=== PATIENT | male | born 1970 | race Caucasian/White ===

== ENCOUNTER 2017-06-22 10:22 | Inpatient (IN) | payer OTHER ==
--- NOTE | 2017-06-22 10:21 | EDPHY ---
HPI/HX/ROS/PE/MDM Narrative: CHIEF COMPLAINT: Stroke Alert HPI: The patient is a 46-year-old male, who comes in by EMS as a Stroke Alert. For the past week the patient has experienced intermittent headaches that have increased in frequency and duration. Over the past 4 days the patient has experienced vertigo. At 9:30 a.m. this morning the patient developed sudden onset of severe headache. He had associated nausea and dizziness. At onset of headache patient had ringing in his ears and noticed left sided weakness. No visual changes. Patient reports a recent incident of whiplash. He says he snapped his head back after playing a golf game on his iPad. He had a massage done after this to try to alleviate his pain. REVIEW OF SYSTEMS: Aside from elements discussed in the HPI, a comprehensive 10-point review of systems was reviewed and is negative. PMH: Denies. SOCIAL HISTORY: , at bedside. PHYSICAL EXAM: General: Patient is alert, in no acute distress. ENT: Eyes are normal to inspection. ENT inspection normal. Neck: Normal inspection. Full range of motion. Respiratory: No respiratory distress. Breath sounds normal bilaterally. Cardiovascular: Regular rate and rhythm. Strong peripheral pulses. Abdomen: The abdomen is nontender to palpation. There are no peritoneal signs. There are normal bowel sounds. Back: Normal to inspection. No tenderness to palpation. Skin: Normal color. No rash. Warm and dry. Extremities: Normal appearance. Full range of motion. Neuro: Oriented x3. Left sided facial droop. Abnormal speech. ED Course: I met the patient on arrival at 10:22 a.m. Patient has left sided facial weakness. Patient was sent to CT immediately. 1030: Noncontrast head CT was negative per the radiologist, Dr. Jonathan Stout. 1045: Patient was evaluated by the neuro-robot. Patient's neurological findings include nasal palatal speech deficit and left sided facial droop. tPA is recommended. 1050: Head CTA shows left vertebral artery dissection per the radiologist, Dr. Jonathan Stout. She agrees with the plan for tPA administration. 1100: I spoke to the hospitalist, Dr. Starr, who accepts the patient for admission. Critical care time spent by me, Dr. Piña, exclusively with this patient was 80 minutes, exclusive of PA time, and exclusive of procedures. The patient has a vertebral artery dissection and tPA was administered in the emergency room. The patient was admitted and transferred to the care of a neurosurgeon to prevent worsening of the patients condition. - Data Points Imaging Results: Imaging Impressions Chest X-Ray 06/22/17 10: Impression: Normal. Head CT 06/22/17 10: Impression: No definite focal truncation or vessel blockage. No bleed. No signs of acute or subacute stroke. Report was given to Dr. Sunday Piña at 10:30 a.m. Head CTA 06/22/17 10: Impression: Dominant right vertebral. No acute intracranial abnormality. Preliminary result is given to Dr. Sunday Morales at 10:38 AM. Final results at 10:48 AM. Neck CTA 06/22/17: Impression: 1. 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 2. Acute truncation of flow in the left vertebral artery at C1-C2, with subsequent reconstitution at skull base. The most likely explanation is distal dissection with subsequent complete occlusion. This would explain majority of patient's presenting symptoms as well. 3. Given presence of right-sided facial droop without a discrete discernible vascular occlusion in the right middle cerebral distribution, consider MRI of the brain for evaluation of diffusion abnormalities. Consider noncontrast MRI of the neck, looking for blood products in the left vertebral wall, to assess definitively the extent of the left vertebral dissection, although this would not change medical management. 4. No atherosclerotic disease or related stenosis. 5. Anatomic variation where the right ascending pharyngeal artery comes straight off of the carotid bifurcation. Preliminary result was given to Dr. Piña at 10:38 a.m. raising the possibility of a left vertebral dissection. Final results of the above were given to Dr. Piña at 10:48 a.m. Note: All stenoses are calculated using NASCET Criteria. Imaging: Discussed imaging studies w/ teacher physically impaired Radiologist Laboratory Results: Laboratory Results 06/22/17 10:31 06/22/17 10:31 06/22/17 06/22/17 06/22/17 10:31 10:31 10:31 WBC 7.53 10^3/uL 10^3/uL (3.80-9.50) RBC 5.59 10^6/uL 10^6/uL (4.40-6.38) Hgb 17.5 g/dL g/dL (13.7-17.5) POC Hgb Hct 48.4 % % (40.0-51.0) POC Hct MCV 86.6 fL fL (81.5-99.8) MCH 31.3 pg pg (27.9-34.1) MCHC 36.2 g/dL g/dL (32.4-36.7) RDW 11.6 % % (11.5-15.2) Plt Count 189 10^3/uL 10^3/uL (150-400) MPV 10.8 fL fL (8.7-11.7) Neut % (Auto) 44.3 % % (39.3-74.2) Lymph % (Auto) 45.9 % H % (15.0-45.0) Todd % (Auto) 8.0 % % (4.5-13.0) Eos % (Auto) 0.8 % % (0.6-7.6) Baso % (Auto) 0.7 % % (0.3-1.7) Nucleat RBC Rel Count 0.0 % % (0.0-0.2) Absolute Neuts (auto) 3.34 10^3/uL 10^3/uL (1.70-6.50) Absolute Lymphs (auto) 3.46 10^3/uL H 10^3/uL (1.00-3.00) Absolute Monos (auto) 0.60 10^3/uL 10^3/uL (0.30-0.80) Absolute Eos (auto) 0.06 10^3/uL 10^3/uL (0.03-0.40) Absolute Basos (auto) 0.05 10^3/uL 10^3/uL (0.02-0.10) Absolute Nucleated RBC 0.00 10^3/uL 10^3/uL (0-0.01) Immature Gran % 0.3 % % (0.0-1.1) Immature Gran # 0.02 10^3/uL 10^3/uL (0.00-0.10) PT 14.0 SEC SEC (12.0-15.0) INR 1.09 (0.83-1.16) POC Sodium Sodium 137 mEq/L mEq/L (134-144) POC Potassium Potassium 4.3 mEq/L mEq/L (3.5-5.2) POC Chloride Chloride 106 mEq/L mEq/L (97-110) Carbon Dioxide 17 mEq/l L mEq/l (22-31) Anion Gap 14 mEq/L mEq/L (8-16) POC BUN BUN 14 mg/dL mg/dL (7-23) Creatinine 1.0 mg/dL mg/dL (0.7-1.3) POC Creatinine Estimated GFR > 60 Glucose 114 mg/dL H mg/dL (70-100) POC Glucose Calcium 9.3 mg/dL mg/dL (8.5-10.4) 06/22/17 10:25 WBC RBC Hgb POC Hgb 17.3 gm/dL gm/dL (13.7-17.5) Hct POC Hct 51 % % (40-51) MCV MCH MCHC RDW Plt Count MPV Neut % (Auto) Lymph % (Auto) Todd % (Auto) Eos % (Auto) Baso % (Auto) Nucleat RBC Rel Count Absolute Neuts (auto) Absolute Lymphs (auto) Absolute Monos (auto) Absolute Eos (auto) Absolute Basos (auto) Absolute Nucleated RBC Immature Gran % Immature Gran # PT INR POC Sodium 140 mEq/L mEq/L (134-144) Sodium POC Potassium 3.8 mEq/L mEq/L (3.3-5.0) Potassium POC Chloride 105 mEq/L mEq/L (97-110) Chloride Carbon Dioxide Anion Gap POC BUN 14 mg/dL mg/dL (7-23) BUN Creatinine POC Creatinine 1.0 mg/dL mg/dL (0.7-1.3) Estimated GFR Glucose POC Glucose 128 mg/dL H mg/dL (70-100) Calcium Medications Given: Discontinued Medications Alteplase, Recombinant (Activase) 7.85646 mg 0.09 mg/kg (7.46482 mg) IV ONCE ONE PRN Reason: Protocol Stop: 06/22/17 10:48 Last Admin: 06/22/17 10:50 Dose: 7.8 mg Alteplase, Recombinant (Activase) 69.08930 mg 0.81 mg/kg (69.50983 mg) IV ONCE ONE PRN Reason: Protocol Stop: 06/22/17 10:48 Last Admin: 06/22/17 10:51 Dose: 69.8 mg Sodium Chloride (Ns) 50 mls @ 0 mls/hr IV EDNOW ONE PRN Reason: Per Protocol Stop: 06/22/17 10:48 Last Admin: 06/22/17 11:40 Dose: 50 mls Point of Care Test Results: 06/22/17 10:25 POC Sodium 140 POC Potassium 3.8 POC Chloride 105 POC BUN 14 POC Creatinine 1.0 POC Glucose 128 H General Initial Vital Signs: Initial Vital Signs Temperature (C) 36.8 C 06/22/17 10:43 Heart Rate 68 06/22/17 10:43 O2 Delivery Mode Nasal Cannula O2 (L/minute) 2 Allergies/Adverse Reactions: divalproex sodium [From Depakote] Allergy (Verified 06/22/17 11:19) Home Medications: Medication Instructions Recorded Fexofenadine HCl [Magaly Allergy] 60 mg PO DAILY 06/22/17 LORazepam [Ativan (*)] 1.5 mg PO HS 06/22/17 Mirtazapine [Remeron] 60 mg PO HS 06/22/17 Naproxen [Naprosyn] 500 mg PO BID PRN 06/22/17 Nortriptyline HCl [Pamelor 10 mg 20 mg PO HS 06/22/17 (*)] Nortriptyline HCl [Pamelor] 75 mg PO HS 06/22/17 Ranitidine HCl [Zantac 75] 75 mg PO DAILY 06/22/17 Departure - Departure Disposition: [facility] Inpatient Acute Clinical Impression: Vertebral artery dissection Condition: Serious Report Scribed for: Sunday Piña Report Scribed by: Zuleima Saavedra Date of Report: 06/22/17 Time of Report: 10:21 Physician Review and Approval Statement: Portions of this note were transcribed by a diagnostic medical sonographer. I personally performed the history, physical exam, and medical decision-making; and confirmed the accuracy of the information in the transcribed note.
[2017-06-22 10:40] LABS: % IMMATURE GRANULYOCYTES 0.3 % (0.0-1.1); ABSOLUTE IMMATURE GRANULOCYTES 0.02 10^3/uL (0.00-0.10); ADD DIFF? NO; ADD MORPH? NO; ADD SCAN? NO; ATYPICAL LYMPHOCYTE FLAG 10 (0-99); FRAGMENT RBC FLAG 0 (0-99); HEMATOCRIT 48.4 % (40.0-51.0); HEMOGLOBIN 17.5 g/dL (13.7-17.5); LEFT SHIFT FLG 0 (0-99); LIPEMIA HEMOLYSIS FLAG 90 (0-99); MEAN CELL HEMOGLOBIN 31.3 pg (27.9-34.1); MEAN CELL HEMOGLOBIN CONCENTR. 36.2 g/dL (32.4-36.7); MEAN CELL VOLUME 86.6 fL (81.5-99.8); MEAN PLATELET VOLUME 10.8 fL (8.7-11.7); PLATELET CLUMPS FLAG 10 (0-99); PLATELET COUNT 189 10^3/uL (150-400); RED BLOOD CELL COUNT 5.59 10^6/uL (4.40-6.38); RED CELL DISTRIBUTION WIDTH 11.6 % (11.5-15.2)
[2017-06-22] MEDS ORDERED: ALTEPLASE 100 MG/100 ML VIAL IV ONE ×2 (10:43→10:47)
[2017-06-22] MEDS ORDERED: ALTEPLASE 1 MG/ML SYR IV ONE (10:47)
[2017-06-22] MEDS ORDERED: NS 50 ML IV ONE (10:47)
--- NOTE | 2017-06-22 10:52 | CPEKG ---
Heart Rate: 71 RR Interval: 845 P-R Interval: 156 QRSD Interval: 102 QT Interval: 416 QTC Interval: 453 P Noble: 61 QRS Noble: 23 T Wave Noble: 44 EKG Severity - BORDERLINE ECG - EKG Impression: SINUS RHYTHM EKG Impression: TALL R WAVE IN V2, CONSIDER RVH OR PMI Electronically Signed By: Tyler Rogers 24-Jun-2017 08:16:28
[2017-06-22 10:54] LABS: INR 1.09 (0.83-1.16)
[2017-06-22 11:01] LABS: ANION GAP 14 mEq/L (8-16); CALCIUM 9.3 mg/dL (8.5-10.4); CARBON DIOXIDE 17 mEq/l (22-31); CHLORIDE 106 mEq/L (97-110); GLOMERULAR FILTRATION RATE > 60; GLUCOSE 114 mg/dL (70-100); POTASSIUM 4.3 mEq/L (3.5-5.2); SODIUM 137 mEq/L (134-144)
[2017-06-22] MEDS ORDERED: ONDANSETRON DISINTEGRATING 4 MG TAB PO PRN (11:31)
[2017-06-22] MEDS ORDERED: LABETALOL HCL 5 MG/ML 20 ML MDV IVP PRN (11:33)
[2017-06-22 13:24] LABS: HEMOGLOBIN A1C 4.9 % (4.0-6.0)
[2017-06-22] MEDS: NS 1,000 ML IV SCH (15:31)
--- NOTE | 2017-06-22 15:44 | NEUROPROG ---
Assessment: [id number] CC: Stroke, post-TPA HPI: This patient was initially seen 06/22/17 as an inpatient consult at [facility]. He reported 2 weeks of head/neck pain. 4-5 days ago he began getting vertigo intermittently. This am, he developed sudden onset left facial weakness, dysarthria, and left arm ataxia. He presented to [facility] ER where a head CT was normal but a CTA head/neck suggested a left vertebral dissection with left vert occlusion as the likely cause of an acute stroke. He was given TPA and admitted to the ICU. When I saw him he developed new diplopia during my exam so I ordered a STAT head CT (still pending read) to exclude hemorrhagic conversion. He does report in the last few weeks possible neck injury playing an Ipad and a massage done for that pain. PMHx: none SHx: FHx: NC ROS: Pt denied acute fever, total vision loss, active severe chest pain, respiratory failure, total body severe rash, total bowel/bladder incontinence, psychosis, active seizures, or active bleeding O: VS bp 132/80 P 65 RR 16 Satting 91% on RA Temp 36.8C NSR General: Alert Eyes: Fundoscopic exam not able to visualize optic disks CV: Heart RRR, no murmur, no carotid bruit Lungs: Clear to auscultation bilaterally, no rhonci or rales Neuro: - Mental: . Oriented x person/place/date . concentration appears normal . speech fluency/comprehension normal . memory appears normal . fund of knowledge appear intact - Cranial Nerves: . II: PERRL, VFFTC . III/IV/: EOMI (although patient complained of slight diplopia), no nystagmus, normal smooth pursuits, no Ptosis . V: facial sensation intact to LT . VII: left upper and lower facial weakness . VIII: hearing intact to conversation . IX/X: uvula raises symmetrically, dysarthric voice (mild) . XI: SCM 5/5 B/L strength . XII: tongue protrudes midline w/nl strength - Motor: . Tone: normal tone in all 4 extrem . Strength: no pronator drift, strength 5/5 throughout (B/L delt, bic, tri, hand television cameraman, hf/he, df/pf) - Reflexes: B/L bic/BR/patella 2/4 - Sensory: all 4 extrem intact to light touch - Coord: left arm ataxic - Gait: deferred NIH SS: 5 (3 left face weak, 1 left arm ataxic, 1 dysarthria) Labs: 06/22/17- CBC wnl, INR wnl, Chem wnl, H1AC 4.9 Rads: 06/22/17- Head CT: no acute changes, no bleed (I personally visualized the images on 06/22/17) 06/22/17- CTA head/neck: likely distal left vert dissection with occlusion Assessment: 1. Left vertebral artery dissection causing vessel occlusion and stroke, status post-TPA: His neurologic exam showed diplopia, upper/lower facial weakness, dysarthria, and left arm ataxia. This likely represents a stroke in the left jeffrey region to explain his symptoms. He received TPA. 2. 2 week of head pain/neck pain: I suspect his left vertebral dissection occurred 2 weeks ago to explain the pain. I suspect he progressed to a vessel occlusion and stroke on 06/22/17. Plan: - ICU care for 24 hours given TPA, avoid all blood sticks - blood pressure < 185/110 X 72 hours then < 140/90 retirement - H1AC goal < 7.0 (4.9) - LDL goal < 70 (lipid panel pending) - DVT prophy w/SCDs - Hold antiplatelet therapy for 24 hours, if head CT at that time shows no bleed then begin aspirin 325 mg qd (change to 81 mg qd at discharge) - Head CT 24 hours after TPA to exclude hemorrhagic conversion - Brain MRI w/o contrast tomorrow to map out stroke - TTE, 24 hour telemetry to exclude cardioembolic source of stroke ADDENDUM: Pt felt his diplopia came on suddenly after the TPA so I ordered a STAT head CT to exclude hemorrhage. If this is unremarkable and he remains stable then no further emergent evaluation is needed. I suspect his initial stroke is evolving to explain his changing symptoms. NO additional therapy needed at this time. 90 minutes of critical care time. I evaluated the patient initially then ordered a STAT head CT with changing neurologic symptoms (diplopia). He has a stroke with TPA and therefore requires ICU care Objective: Vital Signs Temp Pulse Resp BP Pulse Ox 36.8 C 82 18 132/80 H 99 06/22/17 13:00 06/22/17 15:30 06/22/17 15:30 06/22/17 15:30 06/22/17 15:30 PT 14.0 SEC (12.0-15.0) 06/22/17 10:31 INR 1.09 (0.83-1.16) 06/22/17 10:31 Allergies/Adverse Reactions: divalproex sodium [From Depakote] Allergy (Verified 06/22/17 11:19)
--- NOTE | 2017-06-22 16:03 | GHP ---
[f rep st] HISTORY AND PHYSICAL DATE OF ADMISSION: 06/22/2017 CHIEF COMPLAINT: Headache, dizziness, left facial droop. HISTORY OF PRESENT ILLNESS: This is a 46-year-old male who about 4 days ago was playing a video bianka e during which he frequently makes violent motions with his head and neck. After that patient was h aving intermittent headaches and vertigo. This morning he developed a sudden onset of severe headac he as well as ringing in his ears and left-sided facial weakness. He has also had some nasal voice. REVIEW OF SYSTEMS: A 10-point review of systems was obtained and was negative. PAST MEDICAL HISTORY: 1. Depression. 2. Chronic mast cell activation. SOCIAL HISTORY: No smoking. Occasional alcohol. FAMILY HISTORY: Reviewed. PHYSICAL EXAM: VITAL SIGNS: Afebrile, blood pressure is 140/85, heart rate 77, oxygen saturation 9 8% on room air. GENERAL: The patient is well developed, no apparent distress. HEENT: Nonicteric sclerae. Extraocular muscles are intact. Moist mucous membranes. NECK: Supple. No thyromegaly. LUNGS: Good effort. Clear to auscultation bilaterally. CARDIOVASCULAR: Regular rate and rhythm. No murmurs, rubs, or gallops. ABDOMEN: Positive bowel sounds. Soft, nontender, nondistended. E XTREMITIES: No clubbing, cyanosis, or edema. SKIN: Without rash, dry, intact. NEUROLOGIC: Alert and oriented x3. There is left facial droop. Nasal sounding voice. No cerebellar signs. PSYCH: Normal mood and affect. LABORATORY DATA: CBC is normal. Chemistries normal. IMAGING: CT scan of the neck shows probable dissection at C1 of the left vertebral artery. ASSESSMENT: This is a 46-year-old male presenting with probable left vertebral dissection status po st tPA. PLAN: 1. Left vertebral dissection. The patient is status post tPA. We will start the tPA order sets. Neurology has been consulted. We will monitor in the ICU. 2. Depression. 3. Mast cell activation. We will continue his medications. /[id number]/MODL
--- NOTE | 2017-06-22 17:23 | GCON ---
[f rep st] CONSULTATION CRITICAL CARE CONSULTATION DATE OF CONSULTATION: 06/22/2017 HISTORY OF PRESENT ILLNESS: The patient is a healthy 46-year-old male, who was admitted today via s troke alert and EMS due to a sudden onset of left-sided weakness and facial droop. He was playing a video game and reported fairly aggressive motion with his head 4 or 5 days ago associated with some dizziness. Symptoms seemed to resolve, but he then he developed worsening vertigo, as well as naus ea and vomiting, and today had sudden onset of speech abnormality, left facial droop, and flaccid pa ralysis of the left arm. He was brought to the emergency department where a CT scan did not show an y evidence of hemorrhage. A stroke alert was called, and he did receive tPA. He denies any other p ast medical history and has otherwise been healthy. REVIEW OF SYSTEMS: Otherwise negative PAST MEDICAL HISTORY: 1. Depression. 2. Chronic sinusitis. PAST SURGICAL HISTORY: None. MEDICATIONS: Outpatient medications are none. Currently, he is on Tylenol, Zyrtec, Pepcid, labetal ol p.r.n., Ativan p.r.n., Remeron q.h.s., and Zofran p.r.n. PHYSICAL EXAMINATION: VITAL SIGNS: He had a blood pressure of 132/80, heart rate of 65, respiratio ns 16, oxygen saturation 91% on room air. GENERAL: He was awake and alert, in no apparent distress , and able to speak in full sentences without using accessory muscles for breathing. His speech did seem a little bit abnormal, and there was a clear left-sided facial droop with smiling. HEENT: Ot herwise, there was no ptosis. Pupils equally round and reactive to light, nonicteric, and noninject ed. Mucous membranes are moist without erythema or exudate. NECK: Supple without adenopathy or ju gular vein distention. LUNGS: Breath sounds clear to auscultation bilaterally without wheezes, rub s or rales. HEART: Regular rate and rhythm without murmurs, rubs, or gallops. ABDOMEN: Soft, non tender, nondistended without hepatosplenomegaly. EXTREMITIES: Showed no clubbing, cyanosis, or franco ma. NEUROLOGIC: His left arm strength seemed to be quite normal to me, 5/5, as well as lower extre mities. Deep tendon reflexes were normal and intact. The left facial droop is as reported. SKIN: Warm and dry without evidence of rash. IMAGING DATA: CT scan and CT angiogram showed congenital narrowing of a vertebral artery and an acu te cutoff of the left vertebral artery. Repeat MRI is currently pending at this time. Otherwise, h is labs were unremarkable. ASSESSMENT AND PLAN: Acute stroke, which has been treated with tPA. [facility] has been very useful, and he has labetalol written as needed to maintain norm al blood pressure. Hyperlipidemia panel is currently pending. An echocardiogram is also pending at this time. Will continue to watch clinically for any further deterioration and await further input from Neurology. /[id number]/MODL
[2017-06-22] MEDS: LORazepam 0.5 MG TAB PO SCH (20:01)
[2017-06-22] MEDS: MIRTAZAPINE 30 MG TAB PO SCH (20:02)
[2017-06-22] MEDS: FAMOTIDINE 20 MG/NACL 50 ML IV SCH (20:02)
[2017-06-22] MEDS ORDERED: FAMOTIDINE 20 MG TAB PO SCH (21:00)
[2017-06-22] MEDS: ONDANSETRON 4 MG/2 ML VIAL IVP PRN (23:19)
[2017-06-23] MEDS: NS 1,000 ML IV SCH ×2 (04:15→10:15)
[2017-06-23] MEDS: ONDANSETRON 4 MG/2 ML VIAL IVP PRN (04:18)
[2017-06-23 05:12] LABS: % IMMATURE GRANULYOCYTES 0.3 % (0.0-1.1); ABSOLUTE IMMATURE GRANULOCYTES 0.02 10^3/uL (0.00-0.10); ADD DIFF? NO; ADD MORPH? NO; ADD SCAN? NO; ATYPICAL LYMPHOCYTE FLAG 0 (0-99); FRAGMENT RBC FLAG 0 (0-99); HEMATOCRIT 45.3 % (40.0-51.0); LEFT SHIFT FLG 0 (0-99); LIPEMIA HEMOLYSIS FLAG 90 (0-99); MEAN CELL HEMOGLOBIN 31.2 pg (27.9-34.1); MEAN CELL HEMOGLOBIN CONCENTR. 35.3 g/dL (32.4-36.7); MEAN CELL VOLUME 88.3 fL (81.5-99.8); MEAN PLATELET VOLUME 10.5 fL (8.7-11.7); PLATELET CLUMPS FLAG 10 (0-99); PLATELET COUNT 159 10^3/uL (150-400); RED BLOOD CELL COUNT 5.13 10^6/uL (4.40-6.38); RED CELL DISTRIBUTION WIDTH 11.6 % (11.5-15.2)
[2017-06-23 05:24] LABS: ALANINE AMINOTRANSFERASE 35 IU/L (21-72); ALBUMIN 4.1 g/dL (3.5-5.0); ALKALINE PHOSPHATASE 43 IU/L (38-126); ANION GAP 13 mEq/L (8-16); ASPARTATE AMINOTRANSFERASE 23 IU/L (17-59); BILIRUBIN,TOTAL 0.8 mg/dL (0.1-1.4); CALCIUM 8.5 mg/dL (8.5-10.4); CARBON DIOXIDE 19 mEq/l (22-31); CHLORIDE 106 mEq/L (97-110); CHOLESTEROL 158 mg/dL (140-200); CHOLESTEROL/HDL RATIO 3.29 RATIO (1.00-4.97); CREATININE 0.8 mg/dL (0.7-1.3); GLOMERULAR FILTRATION RATE > 60; GLUCOSE 92 mg/dL (70-100); HIGH DENSITY LIPOPROTEIN 48 mg/dL (40-65); LDL/HDL RATIO 1.88 RATIO (1.00-3.64); LOW DENSITY LIPOPROTEIN 90 mg/dL (70-100); NON-HIGH DENSITY LIPOPROTEIN 110 mg/dL (90-129); POTASSIUM 4.2 mEq/L (3.5-5.2); SODIUM 138 mEq/L (134-144); TOTAL PROTEIN 6.7 g/dL (6.3-8.2); TRIGLYCERIDE 101 mg/dL (40-150); VERY LOW DENSITY LIPOPROTEINS 20 mg/dL (8-25)
[2017-06-23] MEDS ORDERED: NON-FORMULARY NEW DRUG (Fexofenadine Hcl [Allegra Allergy] 60 MG) PO SCH (09:00)
[2017-06-23] MEDS ORDERED: NON-FORMULARY NEW DRUG (Ranitidine Hcl [Zantac 75] 75 MG) PO SCH (09:00)
--- NOTE | 2017-06-23 10:04 | HOSPPROG ---
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- status post-TPA patient report improved visual deficits overnight and improved strength CT head (personally reviewed and interpreted) no acute hemorrhagic conversion oxygen saturations 95% on RA - completing TPA protocol - start ASA today if cleared by neuro - MRI ordered - TTE ordered - continue monitoring - LDL 90 - should start statin (with goal <70 ) # Depression - held home meds overnight - will discuss restarting with Neuro as pt did not rest well overnight # proph - SCD's # diet - awaiting CUSTOMER ACCOUNTS ADVISOR clearance # dispo - > 2MN as requiring close monitoring and med titration for acute stroke I have discussed the case with - continue current care Subjective: vision improved Objective: Vital Signs Temp Pulse Resp BP Pulse Ox 97.9 C H 75 19 132/79 H 93 06/23/17 04:00 06/23/17 08:00 06/23/17 08:00 06/23/17 08:00 06/23/17 08:00 Laboratory Results 06/23/17 04:50 06/23/17 05:00 06/22/17 06/23/17 06/24/17 05:59 05:59 05:59 Intake Total 1079 Output Total 800 Balance 279 PT 14.0 SEC (12.0-15.0) 06/22/17 10:31 INR 1.09 (0.83-1.16) 06/22/17 10:31 - Physical Exam Constitutional: appears nourished Eyes: anicteric sclera Ears, Nose, Mouth, Throat: moist mucous membranes Cardiovascular: regular rate and rhythym Respiratory: no respiratory distress, no rales or rhonchi Gastrointestinal: normoactive bowel sounds, soft, non-tender abdomen Genitourinary: no bladder fullness Skin: warm, normal color Musculoskeletal: No asymmetric calves Neurologic: AAOx3, facial droop, No weakness Psychiatric: interacting appropriately Lymph, Heme, Immunologic: no cervical LAD ICD10 Worksheet Patient Problems: Problems Problem Status Onset Vertebral artery dissection Acute
[2017-06-23] MEDS: CETIRIZINE 10 MG TAB PO SCH ×2 (10:15→15:41)
[2017-06-23] MEDS: FAMOTIDINE 20 MG/NACL 50 ML IV SCH (10:15)
--- NOTE | 2017-06-23 14:52 | NEUROPROG ---
Assessment: [id number] CC: Stroke, post-TPA Narrative Summary: This patient was initially seen 06/22/17 as an inpatient consult at [facility]. He reported 2 weeks of head/neck pain. 4-5 days ago he began getting vertigo intermittently. This am, he developed sudden onset left facial weakness, dysarthria, and left arm ataxia. He presented to [facility] ER where a head CT was normal but a CTA head/neck suggested a left vertebral dissection with left vert occlusion as the likely cause of an acute stroke. He was given TPA and admitted to the ICU. When I saw him he developed new diplopia during my exam so I ordered a STAT head CT (still pending read) to exclude hemorrhagic conversion. He does report in the last few weeks possible neck injury playing an Ipad and a massage done for that pain. Pt felt his diplopia came on suddenly after the TPA so I ordered a STAT head CT to exclude hemorrhage. This showed no post-TPA changes. HPI: F/U 06/23/17. Brain MRI showed no hemorrhage after TPA but did show stroke in the left medulla and occipital/pareital region all likely from his vertebral artery dissection. His clinical symptoms are stable (left facial weakness, dysarthria, left hand ataxia, diplopia, balance issues). He will likely require rehab after hospital discharge. PMHx: depression SHx: FHx: NC O: NIH SS: 5 (3 left face weak, 1 left arm ataxic, 1 dysarthria) Labs: 06/22/17- CBC wnl, INR wnl, Chem wnl, H1AC 4.9 06/23/17- LDL 90 Rads: 06/22/17- Head CT: no acute changes, no bleed (I personally visualized the images on 06/22/17) 06/22/17- CTA head/neck: likely distal left vert dissection with occlusion 06/23/18- Brain MRI w/o con: 1. Several acute lacunar infarcts involving the posterior left side of the medulla, left occipital cortex, and left parietal cortex with occluded/dissected left vertebral artery. 2. No midline shift, herniation or hemorrhage. Assessment: 1. Left vertebral artery dissection causing vessel occlusion and stroke, status post-TPA (06/22/17): His neurologic exam showed diplopia, upper/lower facial weakness, dysarthria, and left arm ataxia. He received TPA. 2. 2 week of head pain/neck pain: I suspect his left vertebral dissection occurred 2 weeks ago to explain the pain. I suspect he progressed to a vessel occlusion and stroke on 06/22/17. Plan: - Begin aspirin 325 mg qd (change to 81 mg qd at discharge) as brain MRI showed no hemorrhage 24 hours after TPA - OK to move out of ICU to floor - Pt will likely need rehab as gait is affected - blood pressure < 185/110 X 48 hours then < 140/90 detention - H1AC goal < 7.0 (4.9) - LDL goal < 70 (90), recommend beginning low-dose statin - TTE, 24 hour telemetry to exclude cardioembolic source of stroke - OK to restart home medications from my viewpoint 35 min spent with patient, majority of time spent counseling on stroke and prognosis. Objective: Vital Signs Temp Pulse Resp BP Pulse Ox 36.7 C 77 15 126/77 H 98 06/23/17 12:00 06/23/17 13:00 06/23/17 13:00 06/23/17 13:00 06/23/17 13:00 Laboratory Results 06/23/17 04:50 06/23/17 05:00 06/22/17 06/23/17 06/24/17 05:59 05:59 05:59 Intake Total 1079 Output Total 800 900 Balance 279 -900 PT 14.0 SEC (12.0-15.0) 06/22/17 10:31 INR 1.09 (0.83-1.16) 06/22/17 10:31 Allergies/Adverse Reactions: divalproex sodium [From Depakote] Allergy (Verified 06/22/17 11:19)
--- NOTE | 2017-06-23 14:53 | ECHO ---
[id number] + + [address] : : [place] [address] : : [phone] + + Adult Echocardiographic Report + + :Name: MICHELLE CAMPOS 1880Study Date: 06/23/2017 08:02 AM : : Hospital Admission Number: [id number] Loc ation: 246: :: 1970 Gender: Male Height: 71 in : :Age: 46 yrs Race: WH Weight: 197 lb : :Reason For Study: Eval LV Fx : : BSA: 2.1 me ters2 : :History: CVA, L sided weakness : + + MMode/2D Measurements \T\ Calculations IVSd: 0.94 cm LVIDd: 4.1 cm FS: 37.5 % Ao root diam: 3.2 cm LVPWd: 0.96 cm LVIDs: 2.6 cm EDV(Teich): 74.9 ml ACS: 2.1 cm ESV(Teich): 24.0 ml EF(Teich): 68.0 % Normal Measurement Values: + + :LVIDd (3.5-5.7cm) IVSd (0.6-1.1cm) LVPWd (0.6-1.1cm) Aortic Root (2.0-3.7cm)Left Atrium (1.5-4.0cm): :LV Vol(d) (76-115ml) LV Vol(s) (29-48ml) Ejec Fraction (50-65%)PV Yimi (0.6- 1.2m/s) TV Yimi (0.4-1.0m/s) : :MV E Yimi (0.8-1.0m/s)MV A Yimi (0.3-1.0m/s)LVOT Yimi (0.7-1.2m/s) Asc Ao Yimi ( 0.9-1.8m/s) : + + Doppler Measurements \T\ Calculations MV E max yimi: Ao V2 max: LV V1 max: PA V2 max: 88.4 cm/sec 122.2 cm/sec 90.8 cm/sec 107.2 cm/sec MV A max yimi: Ao max P.0 mmHgLV V1 max PG: PA max P.6 mmHg 56.8 cm/sec 3.3 mmHg MV E/A: 1.6 Left Ventricle The left ventricle is normal in size and function. There is normal left ventricular wall thickness. The left ventricular ejection fraction is normal. Ejection Fraction = 68%. The left ventricular wall motion is normal. Right Ventricle The right ventricle is normal in size and function. Atria The left atrial size is normal. Right atrial size is normal. Injection of contrast documented no interatrial shunt. The interatrial septum is intact with no evidence for an atrial septal defect. Mitral Valve The mitral valve is normal in structure and function. There is no evidence of mitral valve prolapse. There is no mitral valve stenosis. There is no mitral regurgitation noted. Tricuspid Valve Normal tricuspid valve. There is trace tricuspid regurgitation. Right ventricular systolic pressure is normal. Aortic Valve The aortic valve is trileaflet. There is no aortic stenosis. There is no aortic insufficiency. Pulmonic Valve The pulmonic valve is normal in structure and function. There is no pulmonic valvular regurgitation. Great Vessels The aortic root is normal size. Pericardium/Pleural There is no pericardial effusion. Conclusion A complete two-dimensional transthoracic echocardiogram was performed (2D, M-mode, Doppler and color flow Doppler). The left ventricle is normal in size and function. The left ventricular ejection fraction is normal. Ejection Fraction = 68%. The left ventricular wall motion is normal. The right ventricle is normal in size and function. The left atrial size is normal. The interatrial septum is intact with no evidence for an atrial septal defect. Injection of agitated contrast was negative for intracardiac shunting. The aortic valve is trileaflet. The mitral valve is normal in structure and function. There is trace tricuspid regurgitation. Right ventricular systolic pressure is normal. The pulmonic valve is normal in structure and function. There is no pericardial effusion. Final Reading Physician: Demetrius Hi signed on 06/23/2017 02:51 PM Ordering Physician: Juan Carlos Lazar Performed By: Flavio Weston, CS
[2017-06-23] MEDS: ASPIRIN EC 325 MG TAB PO SCH (15:52)
[2017-06-23] MEDS: FAMOTIDINE 20 MG TAB PO SCH (20:31)
[2017-06-23] MEDS: MIRTAZAPINE 30 MG TAB PO SCH (20:31)
[2017-06-23] MEDS: NORTRIPTYLINE HCL 10 MG CAP PO SCH (20:31)
[2017-06-23] MEDS: LORazepam 0.5 MG TAB PO SCH (20:31)
[2017-06-23] MEDS: NORTRIPTYLINE HCL 25 MG CAP PO SCH (20:34)
[2017-06-23] MEDS: ACETAMINOPHEN 325 MG TAB PO PRN (20:36)
[2017-06-23] MEDS ORDERED: NORTRIPTYLINE HCL 75 MG PO SCH (21:00)
[2017-06-24 05:12] LABS: ANION GAP 11 mEq/L (8-16); CALCIUM 9.3 mg/dL (8.5-10.4); CARBON DIOXIDE 22 mEq/l (22-31); CHLORIDE 106 mEq/L (97-110); GLOMERULAR FILTRATION RATE > 60; GLUCOSE 87 mg/dL (70-100); POTASSIUM 4.3 mEq/L (3.5-5.2); SODIUM 139 mEq/L (134-144)
[2017-06-24] MEDS: ATORVASTATIN CALCIUM 20 MG TAB PO SCH (08:33)
[2017-06-24] MEDS: FAMOTIDINE 20 MG TAB PO SCH ×2 (08:33→21:06)
[2017-06-24] MEDS: CETIRIZINE 10 MG TAB PO SCH (08:33)
[2017-06-24] MEDS: ACETAMINOPHEN 325 MG TAB PO PRN (08:33)
[2017-06-24] MEDS: ASPIRIN EC 325 MG TAB PO SCH (08:34)
--- NOTE | 2017-06-24 11:15 | HOSPPROG ---
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- status post-TPA patient report improved visual deficits overnight and improved strength MRI head (personally reviewed and interpreted) no acute hemorrhagic conversion - creatinine stable 1.0 oxygen saturations 95% on RA- patient still experiencing some diplopia but strength and balance both very improved today - ASA daily - low dose statin - PT/OT planning for acute rehab dispo # Depression - cont home meds # proph - SCD's # diet - regular # dispo - > 2MN as requiring close monitoring and med titration for acute stroke I have discussed the case with CM - working towards acute rehab discharge Subjective: feeling much stronger Objective: Vital Signs Temp Pulse Resp BP Pulse Ox 36.8 C 91 19 131/90 H 95 06/24/17 07:58 06/24/17 07:58 06/24/17 07:58 06/24/17 07:58 06/24/17 07:58 Laboratory Results 06/23/17 04:50 06/24/17 04:36 06/23/17 06/24/17 06/25/17 05:59 05:59 05:59 Intake Total 1079 1050 Output Total 800 900 Balance 279 150 PT 14.0 SEC (12.0-15.0) 06/22/17 10:31 INR 1.09 (0.83-1.16) 06/22/17 10:31 - Physical Exam Constitutional: appears nourished Eyes: anicteric sclera Ears, Nose, Mouth, Throat: moist mucous membranes Cardiovascular: regular rate and rhythym Respiratory: no respiratory distress Gastrointestinal: normoactive bowel sounds, soft, non-tender abdomen Genitourinary: no bladder fullness Skin: warm, normal color Musculoskeletal: No asymmetric calves Neurologic: AAOx3, No facial droop Psychiatric: interacting appropriately Lymph, Heme, Immunologic: no cervical LAD ICD10 Worksheet Patient Problems: Problems Problem Status Onset Vertebral artery dissection Acute
--- NOTE | 2017-06-24 12:33 | NEUROPROG ---
Assessment: [id number] CC: Stroke, post-TPA Narrative Summary: This patient was initially seen 06/22/17 as an inpatient consult at [facility]. He reported 2 weeks of head/neck pain. 4-5 days ago he began getting vertigo intermittently. This am, he developed sudden onset left facial weakness, dysarthria, and left arm ataxia. He presented to [facility] ER where a head CT was normal but a CTA head/neck suggested a left vertebral dissection with left vert occlusion as the likely cause of an acute stroke. He was given TPA and admitted to the ICU. When I saw him he developed new diplopia during my exam so I ordered a STAT head CT (still pending read) to exclude hemorrhagic conversion. He does report in the last few weeks possible neck injury playing an Ipad and a massage done for that pain. Pt felt his diplopia came on suddenly after the TPA so I ordered a STAT head CT to exclude hemorrhage. This showed no post-TPA changes. F/U 06/23/17. Brain MRI showed no hemorrhage after TPA but did show stroke in the left medulla and occipital/pareital region all likely from his vertebral artery dissection. His clinical symptoms are stable (left facial weakness, dysarthria, left hand ataxia, diplopia, balance issues). He will likely require rehab after hospital discharge. HPI: F/U 06/24/17. TTE and 24 hour telemetry unremarkable. No new complaints. Pt feeling better. Will likely go to rehab today. PMHx: depression SHx: FHx: NC O: 06/23/17- NIH SS: 5 (3 left face weak, 1 left arm ataxic, 1 dysarthria) Labs: 06/22/17- CBC wnl, INR wnl, Chem wnl, H1AC 4.9 06/23/17- LDL 90 Rads: 06/22/17- Head CT: no acute changes, no bleed (I personally visualized the images on 06/22/17) 06/22/17- CTA head/neck: likely distal left vert dissection with occlusion 06/22/17- TTE: no cardioembolic source of stroke seen 06/22/17- 24 hour telemetry: no afib 06/23/18- Brain MRI w/o con: 1. Several acute lacunar infarcts involving the posterior left side of the medulla, left occipital cortex, and left parietal cortex with occluded/dissected left vertebral artery. 2. No midline shift, herniation or hemorrhage. Assessment: 1. Left vertebral artery dissection causing vessel occlusion and stroke, status post-TPA (06/22/17): His neurologic exam showed diplopia, upper/lower facial weakness, dysarthria, and left arm ataxia. He received TPA. Plan: - Continue aspirin 325 mg qd (change to 81 mg qd at discharge) as brain MRI showed no hemorrhage 24 hours after TPA - Pt discharging to rehab - blood pressure < 140/90 - H1AC goal < 7.0 (4.9) - LDL goal < 70 (90), recommend beginning low-dose statin - F/U in neurology clinic after completing rehab 35 min spent with patient, majority of time spent counseling on stroke, rehab needs, treatment options, and prognosis. Objective: Vital Signs Temp Pulse Resp BP Pulse Ox 36.6 C 82 16 129/92 H 96 06/24/17 11:38 06/24/17 11:38 06/24/17 11:38 06/24/17 11:38 06/24/17 11:38 Laboratory Results 06/23/17 04:50 06/24/17 04:36 06/23/17 06/24/17 06/25/17 05:59 05:59 05:59 Intake Total 1079 1050 Output Total 800 900 Balance 279 150 PT 14.0 SEC (12.0-15.0) 06/22/17 10:31 INR 1.09 (0.83-1.16) 06/22/17 10:31 Allergies/Adverse Reactions: divalproex sodium [From Depakote] Allergy (Verified 06/22/17 11:19)
[2017-06-24] MEDS: NORTRIPTYLINE HCL 10 MG CAP PO SCH (21:05)
[2017-06-24] MEDS: NORTRIPTYLINE HCL 25 MG CAP PO SCH (21:05)
[2017-06-24] MEDS: LORazepam 0.5 MG TAB PO SCH (21:06)
[2017-06-24] MEDS: MIRTAZAPINE 30 MG TAB PO SCH (21:06)
[2017-06-25] MEDS: FAMOTIDINE 20 MG TAB PO SCH ×2 (07:47→21:22)
[2017-06-25] MEDS: ATORVASTATIN CALCIUM 20 MG TAB PO SCH (07:47)
[2017-06-25] MEDS: ASPIRIN EC 325 MG TAB PO SCH (07:47)
[2017-06-25] MEDS: CETIRIZINE 10 MG TAB PO SCH (07:47)
--- NOTE | 2017-06-25 09:10 | PDIAF ---
- Diagnosis Diagnosis: stroke Code Status: Full Code - Medication Management Discharge Medications: Medications to Continue on Transfer Fexofenadine HCl [Magaly Allergy] 60 mg PO DAILY 06/22/17 [Last Taken 06/22/17] LORazepam [Ativan (*)] 1.5 mg PO HS 06/22/17 [Last Taken 06/21/17] Mirtazapine [Remeron] 60 mg PO HS 06/22/17 [Last Taken 06/21/17] Naproxen [Naprosyn] 500 mg PO BID PRN 06/22/17 [Last Taken 06/21/17 21:00] Nortriptyline HCl [Pamelor 10 mg (*)] 20 mg PO HS 06/22/17 [Last Taken 06/21/17] Nortriptyline HCl [Pamelor] 75 mg PO HS 06/22/17 [Last Taken 06/21/17] Ranitidine HCl [Zantac 75] 75 mg PO DAILY 06/22/17 [Last Taken 06/22/17] Aspirin EC [Aspirin EC 325 mg (*)] 325 mg PO DAILY #30 tab 06/25/17 [Last Taken Unknown] Atorvastatin Calcium [Lipitor 20 mg (*)] 20 mg PO DAILY #30 tab 06/25/17 [Last Taken Unknown] Sennosides/Docusate Sodium [Senokot-S] 1 tab PO BID tab 06/25/17 [Last Taken Unknown] Discharge Medications: Refer to the Discharge Home Medication list for PRN reason. - Orders Services needed: Physical Therapy, Occupational Therapy Diet Recommendation: cardiac -low fat low salt Diet Texture: Regular Texture Diet, Thin Liquids, Meds Whole w/Liquids - Follow Up Care Current Providers and Referrals: Patient,NotPresent [Unknown] - As per Instructions Inocente Cruz DO [Medical Doctor] -
[2017-06-25] MEDS: SENNOSIDES/DOCUSATE SODIUM TAB PO SCH ×2 (09:55→21:22)
--- NOTE | 2017-06-25 14:01 | HOSPPROG ---
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- status post-TPA - patient ambulated in the room today without a walker MRI head (personally reviewed and interpreted) no acute hemorrhagic conversion- creatinine normal oxygen saturations 95% on RA - completed TPA protocol - continue ASA daily - cont statin - PT/OT - planning for inpatient rehab # Depression - continue home medications # constipation - starting senna # proph - SCD's # diet - cardiac # dispo - > 2MN as requiring close monitoring and med titration for acute stroke I have discussed the case with RN- waiting for insurance verification for inpatient rehabilitation transfer Subjective: Slept well feeling more stable Objective: Vital Signs Temp Pulse Resp BP Pulse Ox 36.8 C 89 14 131/92 H 92 06/25/17 12:00 06/25/17 12:00 06/25/17 12:00 06/25/17 12:00 06/25/17 12:00 Laboratory Results 06/23/17 04:50 06/24/17 04:36 06/24/17 06/25/17 06/26/17 05:59 05:59 05:59 Intake Total 1050 Output Total 900 3 Balance 150 -3 PT 14.0 SEC (12.0-15.0) 06/22/17 10:31 INR 1.09 (0.83-1.16) 06/22/17 10:31 - Physical Exam Constitutional: appears nourished Eyes: anicteric sclera Ears, Nose, Mouth, Throat: moist mucous membranes Cardiovascular: regular rate and rhythym Respiratory: no respiratory distress, no rales or rhonchi Gastrointestinal: normoactive bowel sounds, soft, non-tender abdomen Genitourinary: no bladder fullness Skin: warm, normal color Musculoskeletal: No asymmetric calves Neurologic: AAOx3 Psychiatric: interacting appropriately, not anxious Lymph, Heme, Immunologic: no cervical LAD ICD10 Worksheet Patient Problems: Problems Problem Status Onset Vertebral artery dissection Acute
[2017-06-25] MEDS: LORazepam 0.5 MG TAB PO SCH (21:21)
[2017-06-25] MEDS: MIRTAZAPINE 30 MG TAB PO SCH (21:22)
[2017-06-25] MEDS: NORTRIPTYLINE HCL 25 MG CAP PO SCH (21:23)
[2017-06-25] MEDS: NORTRIPTYLINE HCL 10 MG CAP PO SCH (21:24)
[2017-06-26 08:46] VITALS: O2SAT 94
[2017-06-26] MEDS: ATORVASTATIN CALCIUM 20 MG TAB PO SCH (08:57)
[2017-06-26] MEDS: CETIRIZINE 10 MG TAB PO SCH (08:58)
[2017-06-26] MEDS: FAMOTIDINE 20 MG TAB PO SCH (08:58)
[2017-06-26] MEDS: SENNOSIDES/DOCUSATE SODIUM TAB PO SCH (08:58)
[2017-06-26] MEDS: ASPIRIN EC 325 MG TAB PO SCH (08:58)
--- NOTE | 2017-06-26 15:42 | HOSPPROG ---
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- status post-TPA - patient ambulated in the room today without a walker MRI head (personally reviewed and interpreted) no acute hemorrhagic conversion- creatinine normal EKG (personally reviewed and interpreted) sinus without acute changes oxygen saturations 95% on RA - dc telemetry - continue ASA daily - cont statin - PT/OT - planning for inpatient rehab # Depression - continue home medications # constipation - starting senna # proph - SCD's # diet - cardiac # dispo - > 2MN as requiring close monitoring and med titration for acute stroke I have discussed the case with CM- waiting for insurance verification for inpatient rehabilitation transfer- patient improving daily Subjective: slept well Objective: Vital Signs Temp Pulse Resp BP Pulse Ox 37.0 C 106 H 19 124/91 H 94 06/26/17 08:00 06/26/17 08:00 06/26/17 08:00 06/26/17 08:00 06/26/17 08:00 Laboratory Results 06/23/17 04:50 06/24/17 04:36 06/25/17 06/26/17 06/27/17 05:59 05:59 05:59 Intake Total 500 Output Total 3 Balance -3 500 PT 14.0 SEC (12.0-15.0) 06/22/17 10:31 INR 1.09 (0.83-1.16) 06/22/17 10:31 - Physical Exam Constitutional: no apparent distress, appears nourished Eyes: anicteric sclera Ears, Nose, Mouth, Throat: moist mucous membranes Cardiovascular: regular rate and rhythym Respiratory: no respiratory distress, no rales or rhonchi Gastrointestinal: normoactive bowel sounds, soft, non-tender abdomen Genitourinary: no bladder fullness Skin: warm Musculoskeletal: No asymmetric calves Neurologic: AAOx3 Psychiatric: interacting appropriately Lymph, Heme, Immunologic: no cervical LAD ICD10 Worksheet Patient Problems: Problems Problem Status Onset Vertebral artery dissection Acute
[2017-06-26 15:58] VITALS: BP 113/91; PULSE 95; RESP 16; TEMP 98.2
--- NOTE | 2017-06-27 16:54 | GDS ---
[f rep st] DISCHARGE SUMMARY DISCHARGE DIAGNOSES: Include. 1. Acute stroke secondary to acute left vertebral artery dissection and vessel occlusion, status po st tPA. 2. Depression. 3. Constipation. HISTORY OF PRESENT ILLNESS: This is a 46-year-old male, who presented acutely on 06/22/2017 with co mplaints of dizziness and a noted left facial droop. For details of patient's initial presentation, please see the history and physical dated 06/22/2017. CONSULTATIVE SERVICES: 1. Neurology. 2. Critical care. PROCEDURES: On 06/22/2017, patient had a brain MRI that showed several acute lacunar infarcts invol ving the posterior left side of the medulla, occipital cortex and left parietal cortex with occluded dissected left vertebral artery. No midline shift is noted. HOSPITAL COURSE: Acute stroke secondary to left vertebral artery dissection and occlusion. The pat ient received tPA emergently in the emergency department and had rapid improvement in his neurologic symptoms over the course of the subsequent 24-48 hours. On the day of disposition, patient was sta ble, ambulating in his room without a walker, had persistent double vision which each day he reporte d improved. He is discharged to inpatient rehabilitation on February 13 with full-dose aspirin, Atorva statin 20 mg and his home medications. The patient will be an excellent candidate for inpatient wu ab. MEDICATIONS AT THE TIME OF TRANSFER: Please reference the med rec printed on 06/26/2017. FOLLOWUP APPOINTMENTS: Include with outpatient Neurology after completion of his inpatient rehab st [facility]. PENDING STUDIES: At the time of this dictation are none. TIME SPENT: I spent greater than 30 minutes in the planning and coordination of this discharge. /[id number]/MODL
== END 2017-06-26 18:00 | DRG 61 ==
LOC: EDBD 10:22 → F2N 13:23 → F3N 06-23 16:40
PROVIDERS: ADMIT Internal Medicine; ATTEND Hospitalist
DX: I63.212 Cerebral infarction due to unspecified occlusion or stenosis of left vertebral artery (principal); I77.74 Dissection of vertebral artery; H53.2 Diplopia; R26.81 Unsteadiness on feet; G83.24 Monoplegia of upper limb affecting left nondominant side; E66.3 Overweight; Z68.27 Body mass index [BMI] 27.0-27.9, adult; K59.00 Constipation, unspecified; D47.0 Mast cell neoplasms of uncertain behavior; F32.9 Major depressive disorder, single episode, unspecified
CPT/HCPCS: 82947-QW; 92526-GN; 92610-GN; 97110-GP; 97116-GP; 97162-GP; 97166-GO; 97530-GO; 97530-GP; 97535-GO; J2405; J2997

== ENCOUNTER 2017-06-26 16:18 | Inpatient (IN) | payer OTHER ==
--- NOTE | 2017-06-26 20:41 | GHP ---
[f rep st] HISTORY AND PHYSICAL POST ADMISSION PHYSICIAN EVALUATION AND REHABILITATION TREATMENT PLAN. DATE OF ADMISSION: 06/26/2017 DATE OF EVALUATION: . TIME OF EVALUATION: 1830 hours. REFERRING FACILITY: [facility]. IMPAIRMENT GROUP: 1.1. DATE OF ONSET: 06/22/2017. REFERRING PHYSICIAN: Dr. Starr. CONSULTING PHYSICIANS: He was seen in consultation by Pulmonary and Critical Care, Dr. Camacho, and by Neurology, Dr. Cruz. REHABILITATION DIAGNOSES: Vertebral artery dissection with stroke of the medulla and occipital parietal region on the left. ETIOLOGIC DIAGNOSIS: Left body involvement (right brain). HISTORY OF PRESENT ILLNESS: This patient had approximately 2 weeks of head and neck pain, and 4-5 days prior to admission he began to experience vertigo intermittently. He then developed sudden onset left facial weakness, difficulty speaking, and left arm incoordination. He came to [facility] and was diagnosed with a left vertebral artery dissection, for which he received thrombolytic tPA. Per his report, he developed double vision suddenly after receiving tPA. There was a repeat a head CT done, which ruled out hemorrhage. Subsequently a brain MRI showed infarct of the left medulla and left occipital/parietal region. He was treated with aspirin and atorvastatin. He had permissive hypertension initially, but did not have very high blood pressures. He was stabilized and appropriate for inpatient rehabilitation. STUDIES AND LABS IN THE HOSPITAL: Echocardiogram was done. There was trace tricuspid regurgitation, and was otherwise normal. Lipid panel showed an LDL of 90, otherwise, it was a benign lipid panel. CBC was normal. Renal and hepatic function tests were normal. PRECAUTIONS: He is a fall risk. ACTIVE COMORBIDITIES: He has no active tier 1, tier 2, or tier 3 comorbidities. PAST MEDICAL HISTORY: 1. Systemic mastocytosis. 2. Depression. PAST SURGICAL HISTORY: He has no history of prior surgeries. PRE-HOSPITAL MEDICATIONS: 1. Ranitidine 150 mg p.o. b.i.d. 2. Fexofenadine b.i.d. 3. Mirtazapine 60 mg p.o. q.h.s. 4. Nortriptyline 95 mg p.o. q.h.s. ADMISSION MEDICATIONS: 1. Aspirin 325 mg p.o. daily. 2. Atorvastatin 20 mg p.o. daily. 3. Fexofenadine 60 mg p.o. daily. 4. Lorazepam 1.5 mg p.o. q.h.s. 5. Mirtazapine 60 mg p.o. q.h.s. 6. Naproxen 500 mg p.o. b.i.d. p.r.n. 7. Nortriptyline 95 mg p.o. q.h.s. 8. Ranitidine 75 mg p.o. daily. 9. Senna/docusate 1 p.o. b.i.d. ALLERGIES: Divalproex sodium. FAMILY HISTORY: Noncontributory. PSYCHOSOCIAL HISTORY: He is . 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 He is a youth assistant football coach. He is a nonsmoker. He does not have a large alcohol habit. REVIEW OF SYSTEMS: He has double vision. He has impaired balance, and he notices incoordination to the left upper extremity, but this is improving. He denies headache, neck pain, difficulty swallowing, weakness, numbness or tingling of the extremities. He has a good appetite. He denies nausea, vomiting, constipation, or diarrhea. He notes what he calls shuttering breath that happens intermittently throughout the day. He denies snoring. He denies cough or dyspnea. He denies chest pain or palpitations. He denies joint pain or joint swelling. He reports that his systemic mastocytosis manifests as welts that he has had on his face. Additionally, he has seasonal allergies. He has been seen at [facility], and these symptoms are under control. He is sleeping well. He does not feel depressed or anxious. Otherwise, a 10-point review of systems is negative. PHYSICAL EXAMINATION: VITAL SIGNS: Not yet available in the chart. Upon discharge from the hospital today, his blood pressure was 113/91, his heart rate was 95, his respiratory rate 16, oxygen saturation was 94% on room air, temperature was 36.8 degrees Celsius, his weight is 89.7 kg, for a body mass index of 27.6. GENERAL: This is an overweight man, appears his chronologic age , cooperative, in no acute distress. HEENT: Extraocular movements are intact. Pupils are equal, round, and reactive to light. Mucous membranes are moist. Dentition is in good condition. NECK: Supple. HEART: Regular rate and rhythm with no murmurs, rubs, or gallops. LUNGS: Clear to auscultation bilaterally. ABDOMEN: Soft, nontender, nondistended with normoactive bowel sounds, and no hepatosplenomegaly. EXTREMITIES: There is no cyanosis, clubbing , or edema. Radial and dorsalis pedis pulses are 2+ bilaterally. NEUROLOGIC: Cranial nerves 2-12 are grossly intact, but for a very subtle left facial droop , and his tongue protrudes slightly to the right of midline. There is no focal weakness. Sensation is intact to light touch. Deep tendon reflexes are 2+ bilaterally at the biceps, patellar, and Achilles tendons. [id number] testing is within normal limits on the right upper extremity, and with slight incoordination and past pointing with the left upper extremity. CURRENT LEVEL OF FUNCTION: Per the pre-admission screen: Regarding diet, feeding, and swallowing he was on a regular diet with thin liquids. For grooming, he required contact guard assist. For bathing, he needed assistance. For dressing, he needed minimal assistance. For toileting, he needed assistance. For bed mobility, he required standby assist. Transfers were done with contact guard assist. He used a front-wheeled walker. For balance, he needed contact guard assist. He needed minimal assist for gait and walked 300 feet. Communication and cognition were within normal limits. IMPRESSION: This patient is a 46-year-old man who suffered a vertebral artery dissection, possibly Or due to a video game involving vigorous neck movements. He was treated with tPA thrombolysis. There was no hemorrhagic conversion, though he developed diplopia subsequent to his tPA treatment. He has participated in therapy, and had improvement in his condition, and is appropriate for inpatient rehabilitation. He will benefit from physical and occupational therapy to optimize mobility activities of daily living and vision. He will benefit from the care of a nurse regarding his fall risk and medication administration. He will benefit from the care of a physician regarding new medications, including aspirin and atorvastatin, and to observe for any recurrence of seasonal allergy symptoms or systemic mastocytosis. His goal is to complete rehabilitation stay and to return home with his family. He will need to be independent during the day, so he will need to achieve modified independence with mobility, and activities of daily living, and medication management. There will be education for him and his family, for him to be able to return home including neurologic education. He will have therapy with physical therapy and occupational therapy for 90 minutes per day per discipline on 5-7 days per week. His expected duration of stay is 7-10 days. Upon discharge, it is anticipated that he will continue to benefit from home health services, including OT and PT, and a stroke support group. ASSESSMENT AND PLAN: 1. Balance impairment, diplopia, and left upper extremity ataxia due to vertebral artery dissection with parietal/occipital and medullary infarctions. Physical and occupational therapy to optimize mobility, activities of daily living, and visual function. 2. Secondary stroke prophylaxis. Continue aspirin and atorvastatin. 3. History of systemic mastocytosis. Continue ranitidine and fexofenadine. 4. History of depression. This has been stable. He reports he has been taking mirtazapine for 20 years. Continue mirtazapine, as well as nortriptyline. 5. Prophylaxis. He has good mobility walking 300 feet. He has no hemiparesis , and he is relatively young. He is not high risk for pulmonary embolus or deep venous thrombosis, and will not have any chemoprophylaxis. Initially, he will have SCDs and SANJAY hose, but these may be discontinued soon. /[id number]/MODL MTDD
[2017-06-26] MEDS ORDERED: NAPROXEN 500 MG PO PRN (21:36)
[2017-06-26] MEDS ORDERED: MIRTAZAPINE 15 MG TAB PO ONE (22:00)
[2017-06-26] MEDS ORDERED: SENNOSIDES/DOCUSATE SODIUM TAB PO ONE (22:03)
[2017-06-26] MEDS: NORTRIPTYLINE HCL 25 MG CAP PO SCH (22:09)
[2017-06-26] MEDS: NORTRIPTYLINE HCL 10 MG CAP PO SCH (22:09)
[2017-06-26] MEDS: LORazepam 0.5 MG TAB PO SCH (22:10)
[2017-06-27] MEDS: ASPIRIN EC 325 MG TAB PO SCH (08:17)
[2017-06-27] MEDS: CETIRIZINE 10 MG TAB PO SCH (08:18)
[2017-06-27] MEDS: ATORVASTATIN CALCIUM 20 MG TAB PO SCH (08:18)
[2017-06-27] MEDS ORDERED: MAGNESIUM HYDROXIDE 30 ML UDCUP PO PRN (08:18)
[2017-06-27] MEDS: FAMOTIDINE 20 MG TAB PO SCH (08:19)
[2017-06-27] MEDS: NAPROXEN SODIUM 220 MG TAB PO PRN (08:20)
[2017-06-27] MEDS: MAGNESIUM HYDROXIDE 30 ML UDCUP PO PRN (08:26)
[2017-06-27] MEDS ORDERED: SENNOSIDES/DOCUSATE SODIUM TAB PO SCH (09:00)
[2017-06-27] MEDS ORDERED: NON-FORMULARY NEW DRUG (Ranitidine Hcl [Zantac 75] 75 MG) PO SCH (09:00)
[2017-06-27] MEDS ORDERED: NON-FORMULARY NEW DRUG (Fexofenadine Hcl [Allegra Allergy] 60 MG) PO SCH (09:00)
[2017-06-27] MEDS ORDERED: BISACODYL 10 MG SUPP PR PRN (13:21)
[2017-06-27] MEDS ORDERED: SENNOSIDES/DOCUSATE SODIUM TAB PO PRN (13:22)
--- NOTE | 2017-06-27 13:34 | SOAPPROG ---
SOAP Progress Note Assessment/Plan: Assessment: * Balance impairment, diplopia, and left upper extremity ataxia due to vertebral artery dissection with parietal/occipital and medullary infarctions. Physical and occupational therapy to optimize mobility, activities of daily living, and visual function. * Secondary stroke prophylaxis. Continue aspirin and atorvastatin. * History of systemic mastocytosis. Continue ranitidine and fexofenadine. * History of depression. This has been stable. He reports he has been taking mirtazapine for 20 years. Continue mirtazapine, as well as nortriptyline. * Prophylaxis. He has good mobility walking 300 feet. He has no hemiparesis, and he is relatively young. He is not high risk for pulmonary embolus or deep venous thrombosis, and will not have any chemoprophylaxis. Initially, he will have SCDs and SANJAY hose, but these may be discontinued soon. 06/27/17 13:52 Subjective: Still complains of double vision. It goes away with a slight right gaze. Received is medications late last night and did not sleep well until after he took his medications. Subsequently he slept well. Denies pain, fevers, chills , cough, dyspnea. Says he did on exercises with OT putting pegs in a peg board ; with the left hand he was 6 seconds slower thin with the right hand. Objective: Vital Signs Temp Pulse Resp BP Pulse Ox 36.5 C 76 18 122/88 H 97 06/27/17 07:14 06/27/17 07:14 06/27/17 07:14 06/27/17 07:14 06/27/17 07:14 06/26/17 06/27/17 06/28/17 05:59 05:59 05:59 Intake Total 360 Balance 360 Physical Exam - Physical Exam General Appearance: WD/WN, alert, no apparent distress Respiratory: No respiratory distress, No accessory muscle use Skin: normal color, warm/dry Neuro/Psych: alert, normal mood/affect, oriented x 3 ICD10 Worksheet Patient Problems: Problems Problem Status Onset Vertebral artery dissection Acute
--- NOTE | 2017-06-27 13:51 | PDOREHIP ---
Admission [facility] - Admission - 3 Day Assessment Period Admission Date/Day 1: 06/26/17 Day 2: 06/27/17 Day 3: 06/28/17 - Active Diagnoses Comorbidities and Co-existing Conditions at Admission: 83940. None of the Above - Skin Conditions Unhealed Pressure Ulcer (1 or more/Stage 1 or >)-Admission: 0. No
[2017-06-27] MEDS ORDERED: MECLIZINE HCL 25 MG TAB PO PRN (16:00)
[2017-06-27] MEDS ORDERED: ONDANSETRON DISINTEGRATING 4 MG TAB PO PRN (16:01)
[2017-06-27] MEDS: POLYETHYLENE GLYCOL 3350 17 GM PKT PO SCH (16:12)
[2017-06-27] MEDS: NORTRIPTYLINE HCL 10 MG CAP PO SCH (20:13)
[2017-06-27] MEDS: LORazepam 0.5 MG TAB PO SCH (20:14)
[2017-06-27] MEDS: NORTRIPTYLINE HCL 25 MG CAP PO SCH (20:14)
[2017-06-27] MEDS: MIRTAZAPINE 30 MG TAB PO SCH (20:16)
[2017-06-27] MEDS ORDERED: LORazepam 0.5 MG TAB PO SCH (21:00)
[2017-06-27] MEDS ORDERED: NORTRIPTYLINE HCL 75 MG PO SCH (21:00)
[2017-06-28] MEDS: CETIRIZINE 10 MG TAB PO SCH (10:47)
[2017-06-28] MEDS: POLYETHYLENE GLYCOL 3350 17 GM PKT PO SCH (10:47)
[2017-06-28] MEDS: ASPIRIN EC 325 MG TAB PO SCH (10:47)
[2017-06-28] MEDS: FAMOTIDINE 20 MG TAB PO SCH (10:48)
[2017-06-28] MEDS: ATORVASTATIN CALCIUM 20 MG TAB PO SCH (10:48)
--- NOTE | 2017-06-28 12:02 | SOAPPROG ---
SOAP Progress Note Assessment/Plan: Assessment: * Balance impairment, diplopia, and left upper extremity ataxia due to vertebral artery dissection with parietal/occipital and medullary infarctions. Initial functional independence measure 91 on 06/28/17. Ambulated 500 feet with contact guard assist, climbed and descended 18 stairs. Scored 18/24 on a day dynamic balance Test consistent with fall risk. Was able to stand on 1 leg for 7 seconds on the right and 2 seconds on the left he has left lower extremity weakness which is worse with more walking. He is at supervision level for activities of daily living except modified independence for bathing. He scored in the normal range for visual processing Physical and occupational therapy to optimize mobility, activities of daily living, and visual function. * Secondary stroke prophylaxis. Continue aspirin and atorvastatin. * History of systemic mastocytosis. Continue ranitidine and fexofenadine. * History of depression. This has been stable. He reports he has been taking mirtazapine for 20 years. Continue mirtazapine, as well as nortriptyline. * Prophylaxis. He has good mobility walking 500 feet. He has no hemiparesis, and he is relatively young. He is not high risk for pulmonary embolus or deep venous thrombosis, and will not have any chemoprophylaxis. Discontinue SCDs and SANJAY hose. Attended staffing, 15 minutes. Discussed with case management, dietitian, nursing, PT, OT, TECHNICAL ASST. He needs to be fully independent during the day. 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 Goal discharge date of 07/04/2017. Plan for outpatient PT and OT. 06/28/17 11:59 Subjective: Double vision is improving somewhat. He has some nausea yesterday which resolved with meclizine. He still feels unsteady in terms of balance. Objective: Vital Signs Temp Pulse Resp BP Pulse Ox 36.9 C 76 18 117/76 94 06/28/17 06:30 06/28/17 06:30 06/28/17 06:30 06/28/17 06:30 06/28/17 06:30 06/27/17 06/28/17 06/29/17 05:59 05:59 05:59 Intake Total 960 290 Balance 960 290 - Time Spent With Patient Time Spent With Patient: Greater than 35 minutes floor time today, including more than 50% of time in coordination of care during staffing meeting, and counseling patient. Physical Exam - Physical Exam General Appearance: WD/WN, alert, no apparent distress Respiratory: No respiratory distress, No accessory muscle use Skin: normal color, warm/dry Neuro/Psych: alert, normal mood/affect, oriented x 3, abnormal records assistant II-XII (EOMI) , abnormal gait (Ataxia LLE with minor LOB) ICD10 Worksheet Patient Problems: Problems Problem Status Onset Vertebral artery dissection Acute
[2017-06-28] MEDS: NORTRIPTYLINE HCL 10 MG CAP PO SCH (20:17)
[2017-06-28] MEDS: LORazepam 0.5 MG TAB PO SCH (20:17)
[2017-06-28] MEDS: NORTRIPTYLINE HCL 25 MG CAP PO SCH (20:19)
[2017-06-28] MEDS: MIRTAZAPINE 30 MG TAB PO SCH (20:20)
[2017-06-29] MEDS: CETIRIZINE 10 MG TAB PO SCH (08:05)
[2017-06-29] MEDS: ATORVASTATIN CALCIUM 20 MG TAB PO SCH (08:05)
[2017-06-29] MEDS: FAMOTIDINE 20 MG TAB PO SCH (08:05)
[2017-06-29] MEDS: POLYETHYLENE GLYCOL 3350 17 GM PKT PO SCH (08:05)
[2017-06-29] MEDS: ASPIRIN EC 325 MG TAB PO SCH (08:05)
--- NOTE | 2017-06-29 09:55 | SOAPPROG ---
SOAP Progress Note Assessment/Plan: Assessment: 46-year-old male status post vertebral artery dissection diagnosed 06/22/2017 , tPA thrombolysis, complicated with diplopia and vertigo, impairments in mobility and self-care. Today's update: Patient doing well in therapies, double vision largely improved with continued double vision in the left upper and lower quadrants but otherwise intact in central vision as well as right-sided. Therapy seems to be going well, remainder of plan below is unchanged * Balance impairment, diplopia, and left upper extremity ataxia due to vertebral artery dissection with parietal/occipital and medullary infarctions. Initial functional independence measure 91 on 06/28/17. Ambulated 500 feet with contact guard assist, climbed and descended 18 stairs. Scored on a day dynamic balance Test consistent with fall risk. Was able to stand on 1 leg for 7 seconds on the right and 2 seconds on the left he has left lower extremity weakness which is worse with more walking. He is at supervision level for activities of daily living except modified independence for bathing. He scored in the normal range for visual processing Physical and occupational therapy to optimize mobility, activities of daily living, and visual function. * Secondary stroke prophylaxis. Continue aspirin and atorvastatin. * History of systemic mastocytosis. Continue ranitidine and fexofenadine. * History of depression. This has been stable. He reports he has been taking mirtazapine for 20 years. Continue mirtazapine, as well as nortriptyline. * Prophylaxis. He has good mobility walking 500 feet. He has no hemiparesis, and he is relatively young. He is not high risk for pulmonary embolus or deep venous thrombosis, and will not have any chemoprophylaxis. Discontinue SCDs and SANJAY hose. He needs to be fully independent during the day. 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 Goal discharge date of 07/04/2017. Plan for outpatient PT and OT. Plan: 06/29/17 09:51 06/29/17 11:15 06/29/17 11:15 Subjective: chief complaint: Double vision No acute events overnight. Patient notes that his double vision has largely resolved, notes that close up work is in focus, but still has some issues with distance. He still endorses some ongoing vertigo. Denies any new numbness, tingling, or weakness, no new chest pain or shortness of breath. Otherwise he slept well, feels that therapy is going well, no other new concerns. Objective: Vital Signs Temp Pulse Resp BP Pulse Ox 36.8 C 97 18 122/96 H 96 06/28/17 17:57 06/29/17 05:32 06/29/17 05:32 06/29/17 05:32 06/28/17 17:57 06/28/17 06/29/17 06/30/17 05:59 05:59 05:59 Intake Total 1160 1970 240 Output Total 300 450 Balance 860 1520 240 Physical Exam - Physical Exam General Appearance: WD/WN, alert, no apparent distress EENT: No scleral icterus (R), No scleral icterus (L), No photophobia Respiratory: No respiratory distress, No accessory muscle use Cardiac/Chest: normal peripheral pulses, regular rate, rhythm Skin: normal color, warm/dry, No cyanosis Extremities: No pedal edema, No swelling Neuro/Psych: alert, normal mood/affect ( Extraocular movements were intact except for the left francisco which showed some diplopia, he had no diplopia in the central francisco or on the right side upper lower quadrants.) ICD10 Worksheet Patient Problems: Problems Problem Status Onset Vertebral artery dissection Acute
[2017-06-29] MEDS: LORazepam 0.5 MG TAB PO SCH (20:37)
[2017-06-29] MEDS: MIRTAZAPINE 30 MG TAB PO SCH (20:37)
[2017-06-29] MEDS: NORTRIPTYLINE HCL 10 MG CAP PO SCH (20:39)
[2017-06-29] MEDS: NAPROXEN SODIUM 220 MG TAB PO PRN (22:30)
[2017-06-30] MEDS ORDERED: OXYMETAZOLINE 30 ML NASAL SPRAY EACHNARE PRN (06:24)
[2017-06-30] MEDS: ASPIRIN EC 325 MG TAB PO SCH (07:46)
[2017-06-30] MEDS: CETIRIZINE 10 MG TAB PO SCH (07:46)
[2017-06-30] MEDS: ATORVASTATIN CALCIUM 20 MG TAB PO SCH (07:46)
[2017-06-30] MEDS: FAMOTIDINE 20 MG TAB PO SCH (07:47)
[2017-06-30] MEDS: POLYETHYLENE GLYCOL 3350 17 GM PKT PO SCH (07:47)
--- NOTE | 2017-06-30 09:36 | SOAPPROG ---
SOAP Progress Note Assessment/Plan: Assessment: 46-year-old male status post vertebral artery dissection diagnosed 06/22/2017 , tPA thrombolysis, complicated with diplopia and vertigo, impairments in mobility and self-care. Today's update: Allergic rhinitis treated with Flonase 2 sprays per nasal twice daily. Okay to discontinue the stockings. Additionally he is ambulating ad mounika, okay to stop the SCDs. Patient will go on a family outing with a off campus pass tomorrow afternoon. Discussed with nursing and therapist without concerns. Stable and somewhat improving mild diplopia on the left gaze but absent on forward gaze or rightward gaze. Remainder of plan is unchanged. a total of 25 minutes was spent on the floor in the care of the patient, the majority of which was spent in counseling and coordination of care regarding planning for his outing. * Balance impairment, diplopia, and left upper extremity ataxia due to vertebral artery dissection with parietal/occipital and medullary infarctions. Initial functional independence measure 91 on 06/28/17. Ambulated 500 feet with contact guard assist, climbed and descended 18 stairs. Scored 18/24 on a day dynamic balance Test consistent with fall risk. Was able to stand on 1 leg for 7 seconds on the right and 2 seconds on the left he has left lower extremity weakness which is worse with more walking. He is at supervision level for activities of daily living except modified independence for bathing. He scored in the normal range for visual processing Physical and occupational therapy to optimize mobility, activities of daily living, and visual function. * Secondary stroke prophylaxis. Continue aspirin and atorvastatin. * History of systemic mastocytosis. Continue ranitidine and fexofenadine. * Allergic rhinitis: Continue antihistamines, initiating Flonase, may also use oxymetazoline p.r.n. was using Flonase as an outpatient per his report * History of depression. This has been stable. He reports he has been taking mirtazapine for 20 years. Continue mirtazapine, as well as nortriptyline. * Prophylaxis. He has good mobility walking 500 feet. He has no hemiparesis, and he is relatively young. He is not high risk for pulmonary embolus or deep venous thrombosis, and will not have any chemoprophylaxis. Discontinue SCDs and SANJAY hose. He needs to be fully independent during the day. 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 Goal discharge date of 07/04/2017. Plan for outpatient PT and OT. Plan: 06/29/17 09:51 06/29/17 11:15 06/29/17 11:15 06/30/17 09:33 06/30/17 09:37 Subjective: chief complaint: Neurological improvement and allergic rhinitis No acute events overnight. Patient endorses some postnasal drip that he has experiences with allergic rhinitis. He uses Flonase at home. He started oxymetazoline p.r.n., would like to start Flonase as well. He is also interested in going on a pass tomorrow with his family at in the afternoon visiting home and doing small outing. Discussed with staff, no concerns about his insight or function. They will attempt to do a car transfer today as well. Denies any new shortness of breath or chest pain, no new numbness, tingling, or weakness. Objective: Vital Signs Temp Pulse Resp BP Pulse Ox 36.5 C 107 H 16 134/95 H 97 06/30/17 07:43 06/30/17 07:43 06/30/17 07:43 06/30/17 07:43 06/30/17 07:43 06/29/17 06/30/17 07/01/17 05:59 05:59 05:59 Intake Total 1970 2080 380 Output Total 450 Balance 1520 2080 380 Physical Exam - Physical Exam General Appearance: WD/WN, alert, no apparent distress EENT: No scleral icterus (R), No scleral icterus (L) Respiratory: normal breath sounds, No respiratory distress, No accessory muscle use Cardiac/Chest: normal peripheral pulses, regular rate, rhythm Skin: normal color, warm/dry, No cyanosis Neuro/Psych: alert, normal mood/affect, abnormal ornamenter II-XII ( Mild double vision on leftward gaze, intact on forward and rightward gaze) ICD10 Worksheet Patient Problems: Problems Problem Status Onset Vertebral artery dissection Acute
[2017-06-30] MEDS: FLUTICASONE NASAL 120 SPRAYS/16 GM MDI EACHNARE SCH (09:52)
[2017-06-30] MEDS: MIRTAZAPINE 30 MG TAB PO SCH (20:43)
[2017-06-30] MEDS: NORTRIPTYLINE HCL 25 MG CAP PO SCH (20:43)
[2017-06-30] MEDS: NORTRIPTYLINE HCL 10 MG CAP PO SCH (20:44)
[2017-06-30] MEDS: LORazepam 0.5 MG TAB PO SCH (20:45)
[2017-06-30] MEDS ORDERED: LISINOPRIL 2.5 MG TAB PO ONE (21:30)
[2017-06-30] MEDS: NAPROXEN SODIUM 220 MG TAB PO PRN (22:30)
[2017-07-01] MEDS: NAPROXEN SODIUM 220 MG TAB PO PRN ×2 (06:00→20:37)
[2017-07-01] MEDS: FLUTICASONE NASAL 120 SPRAYS/16 GM MDI EACHNARE SCH (07:59)
[2017-07-01] MEDS: ATORVASTATIN CALCIUM 20 MG TAB PO SCH (08:36)
[2017-07-01] MEDS: ASPIRIN EC 325 MG TAB PO SCH (08:36)
[2017-07-01] MEDS: FAMOTIDINE 20 MG TAB PO SCH (08:36)
[2017-07-01] MEDS: POLYETHYLENE GLYCOL 3350 17 GM PKT PO SCH (08:36)
[2017-07-01] MEDS: CETIRIZINE 10 MG TAB PO SCH (08:36)
--- NOTE | 2017-07-01 10:33 | SOAPPROG ---
SOAP Progress Note Assessment/Plan: Assessment: 46-year-old male status post vertebral artery dissection, 06/22/2017, tPA thrombolysis, complicated with diplopia and vertigo, impairments in mobility and self-care. Today's update: Called last pm with patient having new sudden onset head pain which felt like the "pain with the onset of his dissection" on 06/22. Pt also had elevated diastolic BP at 110. A stroke alert was called and pt was comfortably transported to [facility] for further eval and treatment. That evaluation demonstrated him to be neurovascularly stable. His pain responded to narcotics and his BP came down with pain relief, lisinipril 2.5 mg and time. Details of the eval were reviewed with the patient today. A total of 25 minutes was spent on the floor in the care of the patient, the majority of which was spent in counseling and coordination of care regarding ongoing monitoring of symptoms as well as planning for his outing to home today. * Balance impairment, diplopia, and left upper extremity ataxia due to vertebral artery dissection with parietal/occipital and medullary infarctions. Initial functional independence measure 91 on 06/28/17. Ambulated 500 feet with contact guard assist, climbed and descended 18 stairs. Scored 18/24 on a day dynamic balance Test consistent with fall risk. Was able to stand on 1 leg for 7 seconds on the right and 2 seconds on the left he has left lower extremity weakness which is worse with more walking. He is at supervision level for activities of daily living except modified independence for bathing. He scored in the normal range for visual processing Physical and occupational therapy to optimize mobility, activities of daily living, and visual function. * Secondary stroke prophylaxis. Continue aspirin and atorvastatin. * History of systemic mastocytosis. Continue ranitidine and fexofenadine. * Allergic rhinitis: Continue antihistamines, initiating Flonase, may also use oxymetazoline p.r.n. was using Flonase as an outpatient per his report * History of depression. This has been stable. He reports he has been taking mirtazapine for 20 years. Continue mirtazapine, as well as nortriptyline. * Prophylaxis. He has good mobility walking 500 feet. He has no hemiparesis, and he is relatively young. He is not high risk for pulmonary embolus or deep venous thrombosis, and will not have any chemoprophylaxis. Discontinued SCDs and SANJAY hose. He needs to be fully independent during the day. 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 Goal discharge date of 07/04/2017. Plan for outpatient PT and OT. Plan: Cont Rehab treatment plan 07/01/17 10:34 Subjective: Pain from last night has resolved Mild anxiety persists No F/C/CP/SOB/N/V/D/C Objective: Vital Signs Temp Pulse Resp BP Pulse Ox 36.5 C 92 16 118/74 93 07/01/17 06:01 07/01/17 06:01 07/01/17 06:01 07/01/17 06:01 07/01/17 06:01 06/30/17 07/01/17 07/02/17 05:59 05:59 05:59 Intake Total 2080 1138 380 Balance 2080 1138 380 Physical Exam - Physical Exam General Appearance: alert, no apparent distress Neck: supple Respiratory: lungs clear Cardiac/Chest: regular rate, rhythm Skin: normal color, warm/dry Extremities: No pedal edema, No calf tenderness Neuro/Psych: alert, normal mood/affect, oriented x 3, abnormal gait, motor weakness, other (no acute changes) ICD10 Worksheet Patient Problems: Problems Problem Status Onset Vertebral artery dissection Acute
[2017-07-01] MEDS: LISINOPRIL 5 MG TAB PO SCH (16:53)
[2017-07-01] MEDS: NORTRIPTYLINE HCL 10 MG CAP PO SCH (20:36)
[2017-07-01] MEDS: MIRTAZAPINE 30 MG TAB PO SCH (20:36)
[2017-07-01] MEDS: LORazepam 0.5 MG TAB PO SCH (20:36)
[2017-07-01] MEDS: NORTRIPTYLINE HCL 25 MG CAP PO SCH (20:37)
[2017-07-02 07:11] VITALS: RESP 16
[2017-07-02] MEDS: MAGNESIUM HYDROXIDE 30 ML UDCUP PO PRN (07:40)
[2017-07-02] MEDS: CETIRIZINE 10 MG TAB PO SCH (07:40)
[2017-07-02] MEDS: ATORVASTATIN CALCIUM 20 MG TAB PO SCH (07:40)
[2017-07-02] MEDS: FAMOTIDINE 20 MG TAB PO SCH (07:40)
[2017-07-02] MEDS: ASPIRIN EC 325 MG TAB PO SCH (07:40)
[2017-07-02] MEDS: FLUTICASONE NASAL 120 SPRAYS/16 GM MDI EACHNARE SCH (07:42)
[2017-07-02] MEDS: POLYETHYLENE GLYCOL 3350 17 GM PKT PO SCH (08:34)
--- NOTE | 2017-07-02 11:38 | SOAPPROG ---
SOAP Progress Note Assessment/Plan: Assessment: 46-year-old male status post vertebral artery dissection, 06/22/2017, tPA thrombolysis, complicated with diplopia and vertigo, impairments in mobility and self-care. Today's update: Called Saturday 06/30 pm with patient having new sudden onset head pain which felt like the "pain with the onset of his dissection" on 06/22. Pt also had elevated diastolic BP at 110. A stroke alert was called and pt was comfortably transported to [facility] for further eval and treatment. That evaluation demonstrated him to be neurovascularly stable. His pain responded to narcotics and his BP came down with pain relief, lisinipril 2.5 mg and time. Details of the monday eval and his home visit on Monday (very fatiguing and frustrated expectations) were reviewed with the patient today. A total of 25 minutes was spent on the floor in the care of the patient, the majority of which was spent in counseling and coordination of care regarding ongoing monitoring of symptoms as well as planning for his D/C tomorrow. * Hypertension: Diatolic BP's still running high after lisinipril 2.5 mg on . Increased to 5mg on 07/01. In addition the recomendations coming out of the ED on Mon were to continue him on 5mg, and the patients was given a Rx. * Dispo meds to be reviewed in am with Dr Haile, including the new Rx for Lisinipril and the recomeded dose of ASA (pt is not clear if he was recomeeded low dose or full strength ASA) * Balance impairment, diplopia, and left upper extremity ataxia due to vertebral artery dissection with parietal/occipital and medullary infarctions. Initial functional independence measure 91 on 06/28/17. Ambulated 500 feet with contact guard assist, climbed and descended 18 stairs. Scored 18/24 on a day dynamic balance Test consistent with fall risk. Was able to stand on 1 leg for 7 seconds on the right and 2 seconds on the left he has left lower extremity weakness which is worse with more walking. He is at supervision level for activities of daily living except modified independence for bathing. He scored in the normal range for visual processing Physical and occupational therapy to optimize mobility, activities of daily living, and visual function. * Secondary stroke prophylaxis. Continue aspirin and atorvastatin. * History of systemic mastocytosis. Continue ranitidine and fexofenadine. * Allergic rhinitis: Continue antihistamines, initiating Flonase, may also use oxymetazoline p.r.n. was using Flonase as an outpatient per his report * History of depression. This has been stable. He reports he has been taking mirtazapine for 20 years. Continue mirtazapine, as well as nortriptyline. * Prophylaxis. He has good mobility walking 500 feet. He has no hemiparesis, and he is relatively young. He is not high risk for pulmonary embolus or deep venous thrombosis, and will not have any chemoprophylaxis. Discontinued SCDs and SANJAY hose. He needs to be fully independent during the day. 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 Goal discharge date of 07/04/2017. Plan for outpatient PT and OT. Plan: Cont Rehab treatment plan 07/02/17 11:35 Subjective: No F/C/CP/SOB/N/V/D Slept well No ROJO or neck pain Objective: Vital Signs Temp Pulse Resp BP Pulse Ox 36.6 C 92 16 119/81 H 93 07/02/17 07:09 07/02/17 07:09 07/02/17 07:09 07/02/17 07:09 07/02/17 07:09 07/01/17 07/02/17 07/03/17 05:59 05:59 05:59 Intake Total 1138 1380 240 Balance 1138 1380 240 Physical Exam - Physical Exam General Appearance: alert, no apparent distress Neck: supple Respiratory: lungs clear Cardiac/Chest: regular rate, rhythm Extremities: No pedal edema, No calf tenderness Neuro/Psych: alert, normal mood/affect (mildly anxious), other (no acute changes ) ICD10 Worksheet Patient Problems: Problems Problem Status Onset Vertebral artery dissection Acute
[2017-07-02 18:22] VITALS: PULSE 97; TEMP 97; O2SAT 96
[2017-07-02] MEDS: NORTRIPTYLINE HCL 10 MG CAP PO SCH (21:00)
[2017-07-02] MEDS: NORTRIPTYLINE HCL 25 MG CAP PO SCH (21:01)
[2017-07-02] MEDS: MIRTAZAPINE 30 MG TAB PO SCH (21:01)
[2017-07-02] MEDS: LISINOPRIL 5 MG TAB PO SCH (21:01)
[2017-07-02] MEDS: LORazepam 0.5 MG TAB PO SCH (21:01)
[2017-07-02 21:05] VITALS: BP 122/82
[2017-07-03] MEDS: ATORVASTATIN CALCIUM 20 MG TAB PO SCH (07:33)
[2017-07-03] MEDS: FAMOTIDINE 20 MG TAB PO SCH (07:34)
[2017-07-03] MEDS: FLUTICASONE NASAL 120 SPRAYS/16 GM MDI EACHNARE SCH (07:34)
[2017-07-03] MEDS: ASPIRIN EC 325 MG TAB PO SCH (07:34)
[2017-07-03] MEDS: CETIRIZINE 10 MG TAB PO SCH (07:34)
[2017-07-03] MEDS: POLYETHYLENE GLYCOL 3350 17 GM PKT PO SCH (07:34)
--- NOTE | 2017-07-03 09:48 | SOAPPROG ---
SOAP Progress Note Assessment/Plan: Assessment: * Balance impairment, diplopia, and left upper extremity ataxia due to vertebral artery dissection with parietal/occipital and medullary infarctions. Initial functional independence measure 91 on 06/28/17. Ambulated 500 feet with contact guard assist, climbed and descended 18 stairs. Scored 18/24 on a day dynamic balance Test consistent with fall risk. Was able to stand on 1 leg for 7 seconds on the right and 2 seconds on the left he has left lower extremity weakness which is worse with more walking. He is at supervision level for activities of daily living except modified independence for bathing. He scored in the normal range for visual processing Physical and occupational therapy to optimize mobility, activities of daily living, and visual function. * Secondary stroke prophylaxis. Continue aspirin and atorvastatin. * History of systemic mastocytosis. Continue ranitidine and fexofenadine. * History of depression. This has been stable. He reports he has been taking mirtazapine for 20 years. Continue mirtazapine, as well as nortriptyline. * Prophylaxis. He has good mobility walking 500 feet. He has no hemiparesis, and he is relatively young. He is not high risk for pulmonary embolus or deep venous thrombosis, and will not have any chemoprophylaxis. Discontinue SCDs and SANJAY hose. Attended staffing, 15 minutes. Discussed with case management, dietitian, nursing, PT, OT, RESEARCH BIOSTATISTICIAN. He needs to be fully independent during the day. 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 Goal discharge date of 07/04/2017. Plan for outpatient PT and OT. 06/28/17 11:59 Subjective: No complaints. Double vision has resolved completely. Objective: Vital Signs Temp Pulse Resp BP Pulse Ox 36.1 C 97 16 122/82 H 96 07/02/17 18:21 07/02/17 18:21 07/02/17 18:21 07/02/17 21:01 07/02/17 18:21 07/02/17 07/03/17 07/04/17 05:59 05:59 05:59 Intake Total 1380 240 Balance 1380 240 Physical Exam - Physical Exam General Appearance: WD/WN, alert, no apparent distress Respiratory: No respiratory distress, No accessory muscle use Skin: normal color, warm/dry Neuro/Psych: no motor/sensory deficits, alert, normal mood/affect, oriented x 3 ICD10 Worksheet Patient Problems: Problems Problem Status Onset Vertebral artery dissection Acute
--- NOTE | 2017-07-04 11:36 | PDOREHIP ---
Admission [facility] - Admission - 3 Day Assessment Period Admission Date/Day 1: 06/26/17 Day 2: 06/27/17 Day 3: 06/28/17 Discharge [facility] - Discharge - 3 Day Assessment Period 2 Days Prior to Anticipated Discharge Date: 07/01/17 1 Day Prior to Anticipated Discharge Date: 07/02/17 Anticipated Discharge Date: 07/03/17 - Discharge Skin Conditions Unhealed Pressure Ulcer (1 or more/Stage 1 or >)-Discharge: 0. No
--- NOTE | 2017-07-04 17:08 | GDS ---
[f rep st] DISCHARGE SUMMARY ADDENDUM DATE OF NEXT APPOINTMENT: Dr. Colby Ye, his psychiatrist, in approximately 2 weeks. MEDICATIONS AT DISCHARGE: 1. Naproxen 500 mg p.o. twice daily p.r.n. 2. Ranitidine 75 mg p.o. daily. 3. Nortriptyline 95 mg at bedtime. 4. Mirtazapine 60 mg at bedtime. 5. Meclizine 25 mg p.o. twice daily p.r.n. 6. Lisinopril 5 mg p.o. q.h.s. 7. Lorazepam 1.5 mg p.o. q.h.s. 8. Fluticasone 2 sprays each p.o. daily. 9. Cetirizine 10 mg p.o. daily. 10. Atorvastatin 20 mg p.o. daily. 11. Aspirin 325 mg p.o. daily. ISSUES TO BE ADDRESSED AT FOLLOWUP: 1. Functional status, including mobility and activities of daily living. He will have outpatient p hysical and occupational therapy, and he can follow up regarding these issues with his primary care provider, as well as neurologist, Dr. Cruz. 2. Diplopia. This was resolved. However, he should have followup with neuro care associate, Dr. Alfonso Bennett. Copy requested to: Dr. Michael Grayson MDbicycle subassembler Dr. Evan Motta Primary Care Provider /[id number]/MODL
--- NOTE | 2017-07-04 17:48 | GDS ---
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 CONSULTATIONS: None. PROCEDURES: None. COMPLICATIONS: None. HISTORY AND HOSPITAL COURSE: This patient was admitted to [facility] from [facility]. He had presented there on 06/22/2017 wit h left facial weakness, difficulty speaking, and left arm incoordination. He was diagnosed with a l eft vertebral artery dissection. He received thrombolytic tPA. He subsequently developed double vi ivon. Repeat CT ruled out hemorrhage, and MRI showed infarct of the left medulla and left occipital /parietal region. He came to rehabilitation with balance impairment, diplopia, and left upper extremity ataxia. He wo rked with therapies, and had resolution of diplopia, and improvement in ataxia and impaired balance. His initial functional independence measured on 06/28/2017 was 91, which is consistent with assist ed living level of function. His goal was to achieve independence so that he could return home and be able to take care of his children. Before discharge, he was able to ambulate 500 feet, and clima te and descend 18 stairs. He scored 18/24 on the dynamic balance test initially, which was consiste nt with risk for falling, but this improved considerably. He was maintained on aspirin and atorvastatin for secondary stroke prophylaxis with no adverse effec ts. He continued his outpatient medications for systemic mastocytosis and depression. There were n o labs or studies done during his stay. CONDITION UPON DISCHARGE: Good. ACTIVITY: Ad mounika, but no driving. DIET: Regular. DATE OF NEXT APPOINTMENT: He will see his primary care provider, Evan Motta, on 07/11/2017. Neur ologist Inocente Cruz on 07/12/2017. Neuroophthalmologist, Alfonso Bennett. Dr. Michael Grayson on an a s-needed basis. /[id number]/MODL
== END 2017-07-03 13:24 | disposition home or self-care (01) | DRG 56 ==
LOC: BREH 18:30
PROVIDERS: ADMIT Internal Medicine; ATTEND Internal Medicine
PROC: F0636ZZ Communicative/Cognitive Integration Skills Treatment of Neurological System - Whole Body (ICD-10-PCS; principal; 2017-06-26)
PROC: F07M3ZZ Motor Function Treatment of Musculoskeletal System - Whole Body (ICD-10-PCS; principal; 2017-06-26)
DX: I69.398 Other sequelae of cerebral infarction (principal); H53.2 Diplopia; I77.74 Dissection of vertebral artery; R26.81 Unsteadiness on feet; I69.334 Monoplegia of upper limb following cerebral infarction affecting left non-dominant side; E66.3 Overweight; Z68.27 Body mass index [BMI] 27.0-27.9, adult; D47.0 Mast cell neoplasms of uncertain behavior; F32.9 Major depressive disorder, single episode, unspecified; J30.9 Allergic rhinitis, unspecified; R03.0 Elevated blood-pressure reading, without diagnosis of hypertension; R51 Headache
CPT/HCPCS: 92507-GN; 92522-GN; 92610-GN; 97110-GO; 97110-GP; 97112-GP; 97116-GP; 97161-GP; 97166-GO; 97530-GO; 97530-GP; 97532-GO; 97535-GO; 97537-GO; 99366-GO